=== PATIENT | male | born 1955 | race Caucasian/White ===

== ENCOUNTER 2017-05-11 06:05 | Day surgery (SDC) | payer OTHER ==
[2017-05-04 14:12] VITALS: BMI 32.2
[2017-05-11] MEDS ORDERED: BUPIVACAINE HCL 0.25% 125 MG/50 ML VIAL ONE (07:30)
[2017-05-11] MEDS ORDERED: fentaNYL CITRATE 250 MCG/5 ML VIAL ONE (07:34)
[2017-05-11] MEDS ORDERED: MIDAZOLAM HCL 2 MG/2 ML SINGLE DOSE VIAL ONE (07:34)
[2017-05-11] MEDS ORDERED: SUCCINYLCHOLINE CHLORIDE 200 MG/10 ML VIAL ONE (07:34)
[2017-05-11] MEDS ORDERED: PROPOFOL 20 ML ONE ×2 (07:34)
[2017-05-11] MEDS ORDERED: ceFAZolin SODIUM 1 GM VIAL ONE (07:38)
[2017-05-11] MEDS ORDERED: LIDOCAINE HCL 2% JELLY (5 ML/TUBE) ONE (07:38)
[2017-05-11] MEDS ORDERED: KETOROLAC TROMETHAMINE 30 MG/1 ML VIAL ONE (07:38)
[2017-05-11] MEDS ORDERED: DEXAMETHASONE SOD PHOSPHATE 4 MG/1 ML VIAL ONE (07:38)
[2017-05-11] MEDS ORDERED: LIDOCAINE HCL/PF 2% SDV 5ML VIAL ONE (07:38)
[2017-05-11] MEDS ORDERED: ONDANSETRON 4 MG/2 ML VIAL ONE (07:38)
--- NOTE | 2017-05-11 07:39 | OP ---
Operative Note - Note: Operative Date: 05/11/17 Pre-Operative Diagnosis: right knee mmt Operation: right knee arthroscopy with partial medial meniscectomy Post-Operative Diagnosis: Same as Pre-op (+ degenerative change) Surgeon: Esequiel Ramos Anesthesia: General Operative Report Dictated: Yes
[2017-05-11] MEDS ORDERED: EPINEPHrine 1:1,000 1 MG/1 ML - 30ML VIAL (INJECTION) ONE (07:40)
[2017-05-11] MEDS ORDERED: oxyCODONE HCL 5 MG TABLET PO PRN ×2 (08:40)
[2017-05-11] MEDS ORDERED: ONDANSETRON 4 MG/2 ML VIAL IVPUSH PRN (08:40)
[2017-05-11] MEDS ORDERED: PROMETHAZINE HCL 25 MG/1 ML VIAL IVPB PRN (08:40)
[2017-05-11] MEDS ORDERED: LACTATED RINGERS SOLUTION 1,000 ML IV SCH (08:45)
--- NOTE | 2017-05-11 08:51 | OP ---
DATE OF OPERATION: 05/11/2017 PREOPERATIVE DIAGNOSIS: Right knee medial meniscal tear. POSTOPERATIVE DIAGNOSES: Right knee medial meniscal tear plus osteoarthritis. PROCEDURE: Right knee arthroscopy with partial medial meniscectomy. SURGEON: Esequiel Ramos MD ANESTHESIOLOGIST: Stef Haynes MD ANESTHESIA TYPE: General. POSTOPERATIVE CONDITION: Stable. COMPLICATIONS: None. INDICATIONS: This is a pleasant gentleman who had been suffering from medial knee pain. MRI demonstrated a medial meniscal tear as well as some degenerative change. Treatment options, including nonoperative versus operative management, were discussed. Operative risks were reviewed in detail, including bleeding, infection, neurovascular injury, need for further surgery, postoperative pain and stiffness, progression of osteoarthritis. We discussed about medical risks such as heart attack, stroke, DVT, PE and . I addressed all the patient's questions and concerns. He voiced understanding and elected to proceed. PROCEDURE: Patient was brought to the operating room where general anesthesia was administered. The right lower extremity was prepped and draped in the usual sterile fashion. A preoperative dose of antibiotics was given and the usual timeout procedure was performed. The knee was examined, demonstrating a moderate effusion. At this point, the portal sites were marked out. They were injected subcutaneously with 0.25% Marcaine. An 11 blade was now used to establish a lateral portal. The arthroscope was passed into the knee. Examination of the patellofemoral joint demonstrated superficial fraying of the patellar and trochlear cartilage surfaces. Passing the arthroscope down into the condylar notch demonstrated an intact ACL. There was some hypertrophy noted of the ligamentum mucosum. A medial portal was established now under spinal needle localization. Examination of the medial compartment demonstrated moderate-thickness cartilage fraying over the femoral condyle and tibial surface. There was just a small patch of full-thickness cartilage loss on the posteromedial femoral condyle. The meniscus had a complex tear extending all the way from the posterior horn into the body and slightly into the anterior horn as well. Utilizing a combination of meniscal biters and a shaver, this was debrided down to a stable base. The arthroscope was now passed into the lateral compartment. Here, there was moderate-thickness fraying of the articular cartilage on the tibial side and slight fraying on the femoral side. The meniscus was within normal limits. The arthroscope was now used to withdraw the excess fluid from the knee. It should be noted that the hypertrophic ligamentum mucosum was debrided. Portals were now sutured using 3-0 nylon. Sterile dressings were placed. The patient was extubated and transferred to the recovery room in stable condition. Laure [id number]
[2017-05-11] MEDS ORDERED: HYDROmorphone HCL CARPU-JECT 1 MG/1 ML DISP.SYRIN ONE (09:02)
[2017-05-11] MEDS ORDERED: HYDROmorphone HCL CARPU-JECT 1 MG/1 ML DISP.SYRIN IVPUSH ONE (09:03)
[2017-05-11] MEDS: HYDROmorphone HCL CARPU-JECT 1 MG/1 ML DISP.SYRIN IVPUSH PRN ×2 (09:04→09:14)
[2017-05-11] MEDS ORDERED: oxyCODONE HCL 5 MG TABLET ONE ×2 (09:16→09:17)
[2017-05-11 09:57] VITALS: TEMP 97.8
[2017-05-11 11:44] VITALS: BP 122/78; PULSE 62
== END 2017-05-11 12:00 | disposition home or self-care (01) ==
LOC: FASU 06:05
PROVIDERS: ATTEND Orthopaedic Surgery Sports Medicine
PROC: 0SBC4ZZ Excision of Right Knee Joint, Percutaneous Endoscopic Approach (ICD-10-PCS; principal; 2017-05-11 08:03)
DX: S83.241A Other tear of medial meniscus, current injury, right knee, initial encounter (principal); X58.XXXA Exposure to other specified factors, initial encounter; Y93.9 Activity, unspecified; Y92.9 Unspecified place or not applicable
CPT/HCPCS: 94760